=== PATIENT | female | born 2000 | race Caucasian/White ===

== ENCOUNTER 2023-07-03 07:14 | Emergency (ER) | payer MEDICAID ==
[~2023-07-03] VITALS: Ht 160 cm; Wt 63.5 kg
[2023-07-03 07:38] VITALS: BP_SYST 121; PULSE 98; RESP 18; TEMP 98.3; O2SAT 98
[2023-07-03] MEDS ORDERED: OFLO5DRO RIGHT EYE (08:17)
== END 2023-07-03 09:40 | disposition home or self-care (01) ==
LOC: SED 07:14
DX: H10.89 Other conjunctivitis (principal); H57.89 Other specified disorders of eye and adnexa; Z79.899 Other long term (current) drug therapy
CPT/HCPCS: 99283

== ENCOUNTER 2023-12-08 21:05 | Emergency (ER) | payer MEDICAID ==
[~2023-12-08] VITALS: Ht 160 cm; Wt 68.0 kg
[~2023-12-08 21:05] MED LIST: OFLO5DRO RIGHT EYE
[2023-12-08 21:14] VITALS: BP_SYST 126; PULSE 87; RESP 20; TEMP 97.7; O2SAT 98
[2023-12-08 21:42] LABS: BASOPHILS # (AUTO) 0.1 K/uL (0.0-0.2); BASOPHILS % (AUTO) 0.6 % (0.0-2.0); EOSINOPHILS # (AUTO) 0.1 K/uL (0.0-0.4); HEMATOCRIT 37.4 % (36-48); HEMOGLOBIN 13.1 g/dL (12.0-16.0); LYMPHOCYTES # (AUTO) 3.9 K/uL (1.0-5.5); LYMPHOCYTES % (AUTO) 35.4 % (20.5-51.5); MEAN CORPUSCULAR HEMOGLOBIN 31 pg (27-31); MEAN CORPUSCULAR HGB CONC 35 % (32-36); MEAN CORPUSCULAR VOLUME 88 fL (79.0-98.0); MONOCYTES # (AUTO) 0.7 K/uL (0.0-1.0); MONOCYTES % (AUTO) 6.4 % (1.7-9.3); NEUTROPHILS # (AUTO) 6.2 K/uL (1.8-7.7); NEUTROPHILS % (AUTO) 56.6 % (40.0-70.0); PLATELET COUNT (AUTO) 384 K/uL (130-430); RED BLOOD CELL COUNT(AUTO) 4.24 MIL/uL (4.2-6.2); RED CELL DISTRIBUTION WIDTH 11.9 % (9.0-15.0)
[2023-12-08 21:48] LABS: BILIRUBIN,URINE NEGATIVE (NEGATIVE); BLOOD, URINE NEGATIVE (NEGATIVE); CLARITY/URINE CLEAR (CLEAR); COLOR,URINE YELLOW (YELLOW); GLUCOSE,URINE NEGATIVE (NEGATIVE); KETONES,URINE NEGATIVE (NEGATIVE); LEUKOCYTE ESTERASE ,URINE NEGATIVE (NEGATIVE); NITRITE, URINE NEGATIVE (NEGATIVE); PH,URINE 6.5 (5.0-8.0); PROTEIN URINE NEGATIVE (NEGATIVE); UROBILINOGEN,URINE 0.2 (0.2-1.0)
[2023-12-08 21:51] LABS: CALCIUM 8.7 mg/dL (8.4-11.0); CREATININE 0.7 mg/dL (0.55-1.30); POTASSIUM 3.7 mmol/L (3.5-5.1)
[2023-12-08 22:01] LABS: ALBUMIN 3.8 g/dL (3.4-4.8); BILIRUBIN,DIRECT 0.1 mg/dL (0.0-0.3); TOTAL BILIRUBIN 0.3 mg/dL (0.0-1.0)
[2023-12-09 01:33] VITALS: BP_SYST 116; PULSE 76; RESP 16; TEMP 97.7; O2SAT 99
== END 2023-12-09 01:33 | disposition home or self-care (01) ==
LOC: SED 21:05
DX: O20.0 Threatened abortion (principal); Z3A.08 8 weeks gestation of pregnancy; Z79.899 Other long term (current) drug therapy
CPT/HCPCS: 36415; 80048; 80076; 81001; 81003; 81025; 83690; 84702; 85025; 99283